=== PATIENT | female | born 1935 | race Caucasian/White ===

== ENCOUNTER 2020-01-15 08:40 | Emergency (ER) | payer MEDICARE, OTHER ==
[~2020-01-15] VITALS: Ht 160 cm; Wt 77.1 kg
[2020-01-15] MEDS ORDERED: GLUCOTROL XL2.5 MG PO (08:59)
[2020-01-15] MEDS ORDERED: NORVASC5 MG PO (08:59)
[2020-01-15] MEDS ORDERED: CRESTOR10 MG PO (08:59)
[2020-01-15] MEDS ORDERED: LISINOPRIL30 MG PO (09:00)
[2020-01-15] MEDS ORDERED: METFORMIN HCL500 MG PO (09:00)
[2020-01-15] MEDS ORDERED: ONDANSETRON ODT8 MG PO (10:50)
== END 2020-01-15 11:05 | disposition home or self-care (01) ==
LOC: ED 08:40
DX: K52.9 Noninfective gastroenteritis and colitis, unspecified (principal); B34.9 Viral infection, unspecified; E11.9 Type 2 diabetes mellitus without complications; Z87.891 Personal history of nicotine dependence; Z79.899 Other long term (current) drug therapy; Z79.84 Long term (current) use of oral hypoglycemic drugs
CPT/HCPCS: 80053; 81001; 85025; 87088; 99284; J7040; U0002

== ENCOUNTER 2020-03-25 14:05 | Inpatient (IN) | payer MEDICARE, OTHER ==
[~2020-03-25] VITALS: Ht 160 cm; Wt 70.6 kg
[~2020-03-25 14:05] MED LIST: CRESTOR10 MG PO; GLUCOTROL XL2.5 MG PO; LISINOPRIL30 MG PO; METFORMIN HCL500 MG PO; NORVASC5 MG PO; ONDANSETRON ODT8 MG PO
--- NOTE | 2020-03-25 17:33 | NUR ---
PATIENT ARRIVES TO CCU AT 1700 FROM ER ON STRETHCER. 2 PERSON ASSIST TO SLIDE PATIENT OVER TO CCU BED. INSULIN GTT INFUSING AT 5 UNITS/HR AND 1/2 NS AT 200 ML/HR INTO SEPERATE IV SITES LEFT ARM. TEMP ON ARRIVAL TO CCU 94.1 RECTAL. BARE HUGGER APPLIED TO PATIENT. PATIENT HAS A DECREASED LOC BUT DOES RESPOND TO HER NAME BEING CALLED BUT NOT FOLLOWING COMMANDS. PT HAS ATTEMPTED TO THROW THE BLANKETS OFF OF HER SOME. TEMP PROBE SOUZA PLACED AND TEMP ON THAT 93.7, BUT STARTING TO CLIMB UP TO 94.2 F AT THIS TIME. SP02 IS 100% ON ROOM AIR. HR IN THE 90s. PT ADMITTED FOR DKA, SEPSIS RELATED TO UTI. CBG CHECKED AT 1715 AND FOUND TO BE 348. INSULIN GTT INCREASED TO 9 UNITS/HR PER INSULIN SLIDING SCALE. WILL CONTINUE TO MONITOR CLOSELY.
--- NOTE | 2020-03-25 18:15 | NUR ---
CBG 300 - INSULIN GTT TITRATED DOWN TO 7.5 UNITS/HR PER PROTOCOL. TEMP PROBE SOUZA 94.7 F AT THIS TIME. CONTINUE TO MONITOR.
--- NOTE | 2020-03-25 18:19 | NUR ---
CRITICAL VALUE OF C02 OF 2. DISCUSSED WITH DR. GRIFFITHS ON THE PHONE AND ORDER REC'D TO CHANGE IVF TO 1/2 NS WITH 75 MEQ OF SODIUM BICARB AT 300 ML/HR FOR 1 L. CONTINUE TO MONITOR URINE OUTPUT CLOSELY AND ALL OTHER VITALS SIGNS.
--- NOTE | 2020-03-25 19:04 | NUR ---
CBG 252 - INSULIN GTT TITRATED DOWN TO 6.3 UNITS/HR AT THIS TIME. 1/2 NS WITH BICARB INFUSING AT 300 ML/HR. CONTINUE CARA ONITOR. URINE OUTPUT WAS 35 ML/HR.
--- NOTE | 2020-03-25 20:12 | NUR ---
pts had a blood sugar check (217), along with her hourly urine output (25ccs). PABLITO Jang assisted me in the room with pt repositioning, nothing needed from pt.
--- NOTE | 2020-03-25 20:13 | NUR ---
EYES ARE OPEN, WAS ABLE TO SAY SHE WAS IN THE HOSPITAL, THOUGHT IT WAS NOVEMBER, UNABLE TO SAY YEAR. RESP ARE LABORED APERARING AND SHE DID SAY SHE FELT SOB. RR24-30. BS 217 AND URINE OUT 25ML THIS HOUR. DR GRIFFITHS CALLED, INSULIN GTT TO 3.4 UNITS/HR. WILL NOT CHANGE IVF TO D5 AT THIS TIME BIACARB SOLUTION STILL INFUSING. REPOSITIONED. COLOR IS PINK. CONT TO HAVE HEAR HUGGER IN PLACE THOUGH PT TAKES IT OFF ARMS. T 96.3 PER SOUZA TEMP PROBE.
--- NOTE | 2020-03-25 21:07 | NUR ---
pts blood sugar was checked, (133). Her hourly urine output was at 15ccs at this time. venu tucker taken off to see if pt can maintain her temperture.
--- NOTE | 2020-03-25 21:13 | NUR ---
BS [address] INSULIN GTT TO 0.[address] GRIFFITHS ON PHONE ORDERS RECIEVED. WILL ADD D5 1/2NS AT 150ML/HR. INFORMED OF URINE OUTPUT.
--- NOTE | 2020-03-25 21:26 | NUR ---
T 97.5 SOUZA TEMP PROBE, BEAR HUGGER OFF. PT ABLE TO TURN SELF TO SIDE.
--- NOTE | 2020-03-25 22:05 | NUR ---
BS 126 INSULIN TO 0.7 UNITS/HR. URINE OUTPUT IMPROVING.
--- NOTE | 2020-03-25 23:06 | NUR ---
pts blood sugar was checked, (132), and hourly urine output is at 135ccs.
--- NOTE | 2020-03-25 23:06 | NUR ---
BS 132, INSULIN TO 0.8 UNITS/HR.
--- NOTE | 2020-03-25 23:31 | NUR ---
DR GRIFFITHS NOTIFIED OF LAB VALUES. NO NEW ORDERS.
--- NOTE | 2020-03-26 00:18 | NUR ---
BS 164, INSULIN TO 1.2 UNITS/HR. IS MORE AWAKE, STILL UNABLE TO REMEMBER MONTH. ABLE TO STATE WHERE SHE LIVES. GIVEN 2 SIPS WATER. RESP ARE MORE LABORED IN APPEARANCE WHEN AWAKE.
--- NOTE | 2020-03-26 01:03 | NUR ---
BS 152 INSULIN GGT TO 1 UNIT/HR.
--- NOTE | 2020-03-26 02:06 | NUR ---
IN TO ROOM, PT SLEEPING. CBG OBTAINED BY AERODYNAMICS PROFESSOR. CBG 149, INSULIN DRIP TITRATED DOWN PER PROTOCOL.
--- NOTE | 2020-03-26 02:08 | NUR ---
pts blood sugar was taken, (149) and her hourly urine output is currently at 60ccs. pts heavy blankets were removed as a precaution due to her temperture being 99.2. Nothing further needed at this time.
--- NOTE | 2020-03-26 03:10 | NUR ---
BS 156. INSULIN TO 1UNIT/HR PER PROTOCOL. PT RR LOW 20'S AND LESS LABORED.
--- NOTE | 2020-03-26 03:15 | NUR ---
pts blood sugar was checked, (156) along with her hourly urine output, (55ccs). pt was falling asleep while i was informing her of what i was doing,
--- NOTE | 2020-03-26 04:15 | NUR ---
BS 157 NO CHANGE IN INSULIN GTT, REMAINS AT 1 UNIT/HR. PT DOES AWAKEN TO VOICE AND WILL FOLLOW COMMANDS. REPOSITIONED.
--- NOTE | 2020-03-26 05:10 | NUR ---
bs 147, insulin gtt to 0.9 units/hr.
--- NOTE | 2020-03-26 06:09 | NUR ---
BS 148. NO CHANGE INSULIN GTT RATE.
--- NOTE | 2020-03-26 07:04 | NUR ---
BS 134, INSULIN GTT NOW 0.8 UNITS/HR
--- NOTE | 2020-03-26 07:38 | NUR ---
REPORT RECIEVED. PATIENT IS RESTFUL IN BED. INSULIN GTT INFUSING AT 0.8 UNITS HR. IVF AT 150 HR. SOUZA CATH PATIENT WITH CLEAR YELLOW URINE NOTED.
--- NOTE | 2020-03-26 09:32 | NUR ---
HERE TO SEE PATIENT. NO FUTHER ORDERS AT THIS TIME.
--- NOTE | 2020-03-26 10:00 | NUR ---
oob to chair. TOTAL LIFT. IS FOLLOWING COMMANDS.
--- NOTE | 2020-03-26 11:18 | NUR ---
LABS DRAWN. PATIENT REMAINS IN CHAIR. DENIES PROBLEMS.
--- NOTE | 2020-03-26 12:53 | NUR ---
remains in chair. ORAL CARE GIVEN, REMAINS NPO. BNP PENDING. PH-7.26, LA-1.0.
--- NOTE | 2020-03-26 13:10 | NUR ---
AYE BERMAN AWARE OF MOST RECENT LABS. ORDERS RECIEVED TO CHANGE IVF, THIS DONE.
--- NOTE | 2020-03-26 13:15 | NUR ---
back to bed with total assist.
--- NOTE | 2020-03-26 14:10 | NUR ---
C/O NAUSEA. STATES SHE DOESN'T FEEL VERY WELL.
--- NOTE | 2020-03-26 14:15 | NUR ---
ZOFRAN4 MG IV GIVEN. INSULIN GTT NOW AT 0.4 UNITS HR.
--- NOTE | 2020-03-26 15:05 | NUR ---
PATIENT IS RESTFUL AT THIS TIME.
--- NOTE | 2020-03-26 16:14 | EKG ---
[facility] [address] [facility] [place] [address] Signed Sinus tachycardia with 1st degree AV block Possible Inferior infarct , age undetermined Abnormal ECG No previous ECGs available Confirmed by MAGALI GRIFFITHS MD ([id number]) on 03/26/2020 4:14:36 PM Electronically Signed By: MAGALI GRIFFITHS MD 03/26/20 1614 PATIENT NAME: JACOBO PEDERSON ANN Electrocardiogram DATE OF : 37 PHYSICIAN: MAGALI GRIFFITHS MD REPORT #: [id number] REPORT IS CONFIDENTIAL AND NOT TO BE RELEASED WITHOUT AUTHORIZATION
--- NOTE | 2020-03-26 18:59 | NUR ---
UPDATED ON PATIENT LABS. ORDERS TO BE RECIEVED. REPOSITIONED.
--- NOTE | 2020-03-26 19:03 | NUR ---
REPORT TO NEST SHIFT.
--- NOTE | 2020-03-26 19:53 | NUR ---
PT RESTLESS AND C/O GENERALIZED DISCOMFORT/ GIVEN 4MG ZOFRAN IV FOR NAUSEA AND THEN 500MG TYLENOL WITH PUDDING FOR DISCOMFORT. STATES SHE WANTS TO BE KNOCKED OUT. HAS OCC DRY COUGH.
--- NOTE | 2020-03-26 20:16 | NUR ---
FEELING BETTER NOW, TOOK REST OF PUDDING AND WATER.
--- NOTE | 2020-03-26 20:23 | PATH ---
[facility] [address] [facility] [place], [place] [address] Signed ORDERING PHYSICIAN: Parker Maxwell MD PATIENT NAME: JACOBO PEDERSON GENDER: F : 1935 SPECIMEN(S): No Source Given MOLECULAR PATHOLOGY RESULTS: SARS-CoV-2 Not Detected ADDITIONAL NOTES.: The [place] Fusion SARS-CoV-2 Assay is a multiplex real-time PCR (RT-PCR) in vitro diagnostic test intended for the qualitative detection of RNA from SARS-CoV-2 from individuals who meet COVID-19 clinical and/or epidemiological criteria. In general, SARS-CoV-2 RNA can be detected during the acute phase of infection. Positive results indicate the presence of SARS-CoV-2 RNA. Clinical correlation with patient history and other diagnostic information is necessary to determine patient infection status. Positive results do not rule out bacterial infection or co-infection with other viruses. Negative results do not preclude SARS-CoV-2 infection and should not be used as the sole basis for patient management decisions. Negative results must be combined with other clinical observations, patient history, and epidemiological information. The [place] Fusion SARS-CoV-2 Assay is not yet approved or cleared by the [place] FDA. When there are no FDA-approved or cleared tests available, and other criteria are met, FDA can make tests available under an emergency access mechanism called an Emergency Use Authorization (EUA). The EUA for this test is supported by the [place] of Health and Human Service's (HHS's) declaration that circumstances exist to justify the emergency use of in vitro diagnostics for the detection and/or diagnosis of the virus that causes COVID-19. This EUA will remain in effect for the duration of the COVID-19 declaration justifying emergency of IVDs, unless it is terminated or revoked by FDA, after which the test may no longer be used. The [place] Fusion SARS-CoV-2 Assay is for use only under EUA in US laboratories certified under the Clinical Laboratory Improvement Amendments of 1988 (CLIA) to perform high complexity tests. [facility] is certified under CLIA to perform high complexity PATIENT NAME: JACOBO PEDERSON ANN PATHOLOGY DATE OF : 37 REPORT #: [id number] PHYSICIAN: ORACIO PATHOLOGY PCP: JIMBO JONES MD REPORT IS CONFIDENTIAL AND NOT TO BE RELEASED WITHOUT AUTHORIZATION [address] [address] Signed clinical laboratory testing. PERFORMING LABORATORY.: Molecular testing was performed by [facility] [address] [place], [place] [address] [address] (Examination Proctor: Bassem Ramon D.O.; CLIA#: [id number]) Diagnostician: System Interface Pathologist Electronically Signed 03/26/2020 Copies: ~ PATIENT NAME: JACOBO PEDERSON ANN PATHOLOGY DATE OF : 37 REPORT #: [id number] PHYSICIAN: ORACIO HANDY PCP: JIMBO JONES MD REPORT IS CONFIDENTIAL AND NOT TO BE RELEASED WITHOUT AUTHORIZATION
--- NOTE | 2020-03-26 21:30 | NUR ---
PT CALLED OUT FOR NURSE, REQUESTING TO BE REPOSITIONED. HELPED TO TURN AND LOWER HOB.
--- NOTE | 2020-03-26 23:47 | NUR ---
SOMEWHAT RESTLESS, TRYING TO GET UP BUT TOO WEAK AND POOR COORDINATION. PT DOESN'T KNOW WHY SHE WANTS TO GET UP. HELPED TO REPOSITION. DOES HAVE STUFFY NOSE AND WILL CLEAR THROAT.
--- NOTE | 2020-03-27 00:46 | NUR ---
CONT TO BE SOMEWHAT RESTLESS, OCC MOANS. UNABLE TO SAY WHY. STATES FEELS SHAKY AND DOES HAVE SOME TREMORS OF HANDS. BS 159. GIVEN 500MG TYLENOL PO FOR GEN DISCOMFORT. WILL RECHCK BS AT 0200.
--- NOTE | 2020-03-27 01:58 | NUR ---
HAS BEEN MORE RESTFUL SINCE TYLENOL WAS GIVEN. BS 168, GIVEN 1 UNIT INSULIN SUB Q.
--- NOTE | 2020-03-27 04:00 | NUR ---
PT CALLED OUT FOR NURSE. C/O BEING NAUSEATED. GIVEN 4MG ZOFRAN IV. HELPED TO REPOSITION. DENIES OTHER C/O.
--- NOTE | 2020-03-27 07:30 | NUR ---
Spoke with Tania. She states she is not feeling well. She lives with her daughter in a 1 story home with 2 steps into the back of the house. She has a walker, but does not use. Not sure what she will need as she feels she is very weak. Daughter works and leaves at 0300, home by 11:00 daily. Daughter assists pt as needed. Pt. does not feel she requires much assistance. She is retired from school cafeteria. Pt plans on dc to home.
--- NOTE | 2020-03-27 07:30 | NUR ---
PATIENT SHIFT REPORT RECIEVED FROM MATERIAL ANALYST RN. PATIENT RESTING IN BED AT THIS TIME. WILL CONTINUE TO CLOSELY MONITOR.
--- NOTE | 2020-03-27 08:30 | NUR ---
PATIENT ASSESSMENT COMPLETED. PATIENT BREATH SOUNDS CLEAR. PATIENT DENEIS SOB. BOWEL TONES ACTIVE. PATIENT STATES SHE HAS MINIMAL NAUSEA AT TIMES. PATIENT HAS MULTIPLE SKIN TEARS ON HER UPPER AND LOWER EXTREMITIES THAT ARE COVERED WITH AN ALYVAN PADS. USED ALEX SLING TO ASSIST PATIENT TO THE CHAIR. CLEAR TRAY ORDERED UP FOR PATIENT. NO OTHER NEEDS AT THIS TIME. WILL CONTINUE TO CLOSELY MONTIOR.
[2020-03-27] MEDS ORDERED: ACETAMINOPHEN-1 EACH PO (10:24)
[2020-03-27] MEDS ORDERED: ADULTS 50+ MUL1 EACH PO (10:27)
--- NOTE | 2020-03-27 12:00 | NUR ---
REPORT GIVEN TO TROY KENNEY ON Novalys. UPDATED ON PLAN OF CARE. NO OTHER NEEDS AT THIS TIME. WILL CONTINUE TO CLOSELY MONITOR.
--- NOTE | 2020-03-27 12:14 | NUR ---
PATIENT CALLED TO GET UP TO CAMMODE AND HAVE A BM. PATIENT TOELRATED WELL. 2 STAFF IN TO ASSIST PATIENT UP TO THE CAMMODE. USED A WALKER AND PATIENT ABLE TO BEAR WEIGHT, BUT IS NOTED TO BE VERY WEAK. WILL CONTINUE TO CLOSELY MONITOR.
--- NOTE | 2020-03-27 12:35 | NUR ---
PATIENT TRANSFERED TO ROOM 120. ONLY BELONGINGS PRESENT ARE A PAIR OF SOCKS. LUNCH ORDERED. CALLED PATIENTS DAUGHTER BLAIR TO UPDATE ON PLAN OF CARE AND TO SEE IF SHE COULD BRING THE PATIENTS DENTURES AND GLASSES IN TODAY AT SOME POINT. NO OTHER NEEDS AT THIS TIME. WILL CONTINUE TO CLSOELY MONITOR.
--- NOTE | 2020-03-27 12:38 | NUR ---
Patient arrives to room 120 from CCU in recliner with aide. Assessment completed. IV fluids infusing per orders. Call light placed in reach. Aide states patient's lunch has been ordered and will be delivered to room.
--- NOTE | 2020-03-27 14:20 | NUR ---
Working with PT at this time. IV converted to SL while working with PT. Complains of some numbness to leg, unable to specify which leg it is. Limps with ambulation.
--- NOTE | 2020-03-27 14:36 | NUR ---
Finishes with PT. IV fluids restarted. Denies other needs at this time. States she would like to rest at this time.
--- NOTE | 2020-03-27 16:05 | NUR ---
Sitting up in recliner. Denies needs at this time. Assessment completed. No changes from previous assessment. Assist to reposition in chair. Call light in reach.
--- NOTE | 2020-03-27 17:14 | NUR ---
Patient admitted from CCU today. Alert, disoriented to time and situation. Denies pain. IV fluids infusing per orders. Magnesium replacement completed. Glucose at lunch 142, supper 156. Sliding scale insulin used to cover blood glucose levels. Sitting up in recliner. Ceja catheter remains in place.
--- NOTE | 2020-03-27 18:01 | NUR ---
PT REMAINS UP IN THE CHAIR. NO C/O'S AT THIS TIME.
--- NOTE | 2020-03-27 19:15 | NUR ---
SHIFT REPORT RECEIVED FROM RUPAL KENNEY. PT UP IN CHAIR, WATCHING TV. NO NEEDS AT THIS TIME. CALL LIGHT IN REACH.
--- NOTE | 2020-03-27 20:02 | NUR ---
CHARGE NURSE NOTE: UP IN CHAIR, AWAKE, WATCHING TV, ON ROOM AIR, IVF INFUSING, NO C/O PAIN. [place]. CALL LIGHT AT HANDS REACH
--- NOTE | 2020-03-27 21:44 | NUR ---
PT BACK TO BED W 2PA/FWW. TRANSFER PIVOT W WEAKNESS R SIDE, SHUFFLING LIKE GAIT R SIDE. ALERT AND ORIENTED. HELPED WITH TRANSFERING TO BED AND REPOSITIONING. GENERALIZED WEAKNESS NOTED TOO. ON ROOM AIR, HOB ELEVATED TO COMFORT, LUNGS DIM AT BASES. MULTIPLE BRUISING ARMS AND MULTIPLE ALLEVYN PATCHES OVER BOTH ARMS AND LEGS. SL RARM, IVF INFUSING LARM, SITES PATENT. F/C CARE DONE, DRAINING QS YELLOW URINE. LEG ELEVTED. CBG 176, RECEIVED 2 UNITS HUMOLOG INSULIN. C/O H/A 5/10 PAIN, MEDICATED WITH TYLENOL 500MG PO. DECLINEES ICE TO BACK OF HEAD. TOLERATING FLUIDS WELL, NO N/V, ASPIRATION PRECAUTIONS IN PLACE. CALL LIGHT AT HANDS REACH. COOPERATIVE, PLEASANT
--- NOTE | 2020-03-27 21:46 | NUR ---
HELPED PABLITO GLASGOW GET PT FROM THE CHAIR INTO HER BED WITH HER FWW.
--- NOTE | 2020-03-27 23:20 | NUR ---
PT IS RESTING WITH EYES CLOSED, RR IS EVEN AND NONLABORED. CALL LIGHT IS WITHIN REACH.
--- NOTE | 2020-03-28 03:20 | NUR ---
PT IS RESTING WITH EYES CLOSED, RR IS EVEN AND NONLABORED. CALL LIGHT IS CLOSE.
--- NOTE | 2020-03-28 03:31 | NUR ---
RESTING, ON ROOM AIR, EYES CLOSED, NO RESP DISTRESS, IVF INFUSING, HOB ELEVATED TO HER COMFORT. CALL LIGHT AT BEDSIDE, F/C PATENT
--- NOTE | 2020-03-28 04:51 | NUR ---
PT IS RESTING WITH EYES CLOSED, RR IS EVEN AND NONLABORED. CALL LIGHT IS CLOSE.
--- NOTE | 2020-03-28 05:50 | NUR ---
VITALS AND I&OS DONE AND CHARTED . GARBAGES EMPTIED. INFORMED RN CHECO OF B\P BEDSIDE TABLE AND CALL LIGHT IN REACH. PT NEEDS NOTHING MORE AT THIS TIME.
--- NOTE | 2020-03-28 07:32 | NUR ---
Recieved report from Tonya Richmond RN. Patient resting in bed at this time with eyes closed. Allowed to rest. Call light in reach, bed rails up X2.
--- NOTE | 2020-03-28 09:00 | NUR ---
Uses call light and requests to lay in bed because she has been awake since 0300 this AM. 2 person assist with walker to bed. Repositioned for comfort. Denies pain. Ceja catheter DC'd per order. States she would like to rest.
--- NOTE | 2020-03-28 09:02 | NUR ---
AM medications given as prescribed. Takes without difficulty. Denies pain at this time. Sitjuani sánchez in recliner. Assessment completed. Call light in reach. Allowed to finish eating breakfast at this time.
--- NOTE | 2020-03-28 10:28 | NUR ---
Lying in bed. Eyes closed. Opens them to noise. Denies needs at this time. Call light in reach. Bed rails up X2
--- NOTE | 2020-03-28 13:01 | NUR ---
Assist from bed to bedside commode, continent of urine. Requests to sit in recliner. Assist to recliner, feet elevated. Denies other needs at this time.
--- NOTE | 2020-03-28 13:57 | NUR ---
Patient sitting up in recliner at this time. Call light in reach. Denies needs at this time.
--- NOTE | 2020-03-28 14:54 | NUR ---
VITALS GURPREET&OS CHARTED. BP ELEVATED AFTER RETURN FROM BATHROOM. RN NOTIFIED, CALL LIGHT CLOSE BY
--- NOTE | 2020-03-28 16:07 | NUR ---
Sitting up in chair at this time. Denies needs. Call light in reach.
--- NOTE | 2020-03-28 18:13 | NUR ---
Patient walked to bathroom multiple times today. Continent and incontinent of loose stools multiple times today. Denies pain today. Gait remains unsteady with exertion. Sits up in chair off and on throughout the day. Some redness noted to buttocks this evening, barrier cream applied.
--- NOTE | 2020-03-28 18:22 | NUR ---
THIS PRODUCTION ENGINE REPAIRER FOUND PATIENT STANDING IN MIDDLE OF HER ROOM, TRYING TO MAKE IT TO BR ALONE. PATIENT HAD 500 OUTPUT BM MIXED WITH URINE. BACK TO BED, VITALS AND I&OS CHARTED. CALL LIGHT IN REACH
--- NOTE | 2020-03-28 20:40 | NUR ---
ASSESSMENT, VS AND I&O COMPLETED. SCHEDULED MEDS PROVIDED. LUNGS CLEAR, BOWEL TONES ACTIVE. ABD SOFT, NONTENDER. CMS INTACT X4 EXTREMITIES. A & O X3. GCS 15. PT SLIGHTLY WEAK AND OFF-BALANCE WHEN USING FWW, 1PA PROVIDED. TOLERATED MEDS WELL. ICE WATER PROVIDED. IV WNL, CDI, FLUSHED WELL. UP TO BR AND BACK TO BED. NO OTHER NEEDS. CALL LIGHT IN REACH, BED ALARM ON.
--- NOTE | 2020-03-28 21:45 | NUR ---
ART HISTORY INSTRUCTOR ROUNDING NOTE. PT RESTING IN BED WITH EYES CLOSED. RESPIRATIONS EVEN AND UNLABORED. PT DOES NOT WAKE WHILE CVICU RN IN ROOM. WHITE BOARD UPDATED. CALL LIGHT IN REACH.
--- NOTE | 2020-03-28 23:27 | NUR ---
BED ALARM SOUNDING, PT GETTING OUT OF BED. 1PA, FWW TO BR AND BACK TO BED. PT EDUCATED CONCERNING USE OF CALL LIGHT. NO OTHER NEEDS AT THIS TIME. BED ALARM ON, RAILS UP, CALL LIGHT IN REACH.
--- NOTE | 2020-03-29 01:25 | NUR ---
PT RESTING IN BED, EYES CLOSED. RR EVEN, UNLABORED. CALL LIGHT IN REACH.
--- NOTE | 2020-03-29 02:56 | NUR ---
PT RESTING IN BED, EYES CLOSED. RR EVEN, UNLABORED. CALL LIGHT IN REACH, BED ALARM ON, RAILS UP.
--- NOTE | 2020-03-29 04:57 | NUR ---
PT RESTING IN BED, EYES CLOSED. RR EVEN, UNLABORED. BED ALARM ON, RAILS UP, CALL LIGHT IN REACH.
--- NOTE | 2020-03-29 05:39 | NUR ---
PT UP TO BR AND BACK TO BED. ASSESSMENT, VS AND I&O COMPLETED. SCATTERED BRUISING AND ABRASIONS WITH ALLEVYN NOTED. LUNG CLEAR, BOWEL TONES ACTIVE. CMS INTACT X4 EXTREMITIES. A & O TO PLACE AND EVENTS BUT NOT TIME. GCS 15. IVs WNL. TRACE EDEMA IN BLE NOTED. NO OTHER NEEDS AT THIS TIME. CALL LIGHT IN REACH.
--- NOTE | 2020-03-29 07:15 | NUR ---
Recieved report from Frankie Loya RN. Patient alert at this time. Ambulates to bathroom with walker and 1 person assist.
--- NOTE | 2020-03-29 10:49 | NUR ---
Lying on right side in bed. Denies pain at this times. States she is feeling well today, but not as well as yesterday. Assessment completed. Scheduled medications given as prescribed. Denies other needs at this time. Call light in reach, bed rails up X2.
--- NOTE | 2020-03-29 12:05 | NUR ---
Assist to sit on edge of bed to eat lunch. Denies other needs at this time. Call light in reach, bed rails up X2.
--- NOTE | 2020-03-29 16:07 | NUR ---
Lying in bed, daughter visiting patient at this time. Assessment completed. Denies needs at this time. Call light in reach, bed rails up X2.
--- NOTE | 2020-03-29 19:20 | NUR ---
REPORT RECEIVED FROM DAY SHIFT RN. PT UP TO BR WITH SBA AND FWW TO HAVE LOOSE STOOL. ASSISTED WITH GRIFFIN CARE. CLEAN BRIEF GIVEN. BACK TO BED, CORTEZ WELL. WHITE BOARD UPDATED. CALL LIGHT IN REACH.
--- NOTE | 2020-03-29 21:45 | NUR ---
took pt vitals
--- NOTE | 2020-03-29 21:50 | NUR ---
EVENING ASSESSMENT COMPLETE. SCHEDULED MEDS ADMINISTERED PER EMAR. EVENING SNACK PROVIDED. PT DENIES PAIN OR NAUSEA. CLEAN ALLEVYN PLACED ON RIGHT FOREARM SKIN TEAR. PT REPOSITIONED IN BED. HOB ELEVATED. NO FURTHER NEEDS AT THIS TIME. CALL LIGHT IN REACH.
--- NOTE | 2020-03-30 01:40 | NUR ---
PT RESTING IN BED WITH EYES CLOSED, NAD. BED ALARM ON.
--- NOTE | 2020-03-30 01:57 | NUR ---
CALL LIGHT ANSWERED. PT UP TO BR WITH SBA AND FWW. GAIT STEADY. PT ABLE TO DO OWN GRIFFIN CARE. CLEAN BRIEF PROVIDED. BACK TO BED, CORTEZ WELL.
--- NOTE | 2020-03-30 03:55 | NUR ---
PT LYING IN BED RESTING WITH EYES CLOSED. RR EVEN AND UNLABORED. BED ALARM FOR SAFETY. CALL LIGHT IN REACH.
--- NOTE | 2020-03-30 05:10 | NUR ---
sba pt to toilet, took vitals, gave fresh ice water
--- NOTE | 2020-03-30 05:11 | NUR ---
sba pt to toilet, bk to bed, took am vitals, gave fresh ice water
--- NOTE | 2020-03-30 05:26 | NUR ---
ASSESSMENT COMPLETE. PT DENIES PAIN OR NAUSEA. NO NEEDS AT THIS TIME. BED ALARM FOR SAFETY. CALL LIGHT IN REACH.
--- NOTE | 2020-03-30 05:50 | NUR ---
retake bp per rn
--- NOTE | 2020-03-30 07:37 | NUR ---
0715: Report received from Jessica KENNEY. Pt sleeping with her call elizabeth within reach.
--- NOTE | 2020-03-30 08:11 | NUR ---
PT SITTING AT THE BEDSIDE EATING BREAKFAST WITH NO COMPLAINTS AT THIS TIME. VSS, SEE ASSESSMENT.
--- NOTE | 2020-03-30 10:55 | NUR ---
Pt appears to be sleeping comfortably at this time. Call elizabeth within reach.
--- NOTE | 2020-03-30 12:50 | NUR ---
PT STATES SHE IS TIRED SHE SLEPT POORLY LAST NIGHT AND SHE COMPLAINS OF LOOSE STOOLS. STOOL SAMPLE RECENTLY SENT TO THE LAB. PT ALSO STATES SHE HAS A "SLIGHT" MONDRAGON BUT DENIES THE NEED FOR ANYTHING FOR IT AND SHE QUICKLY FELL TO SLEEP. SEE ASSESSMENT.
--- NOTE | 2020-03-30 15:21 | NUR ---
PT SLEEPING, CALL ROCHA WITHIN REACH.
--- NOTE | 2020-03-30 16:47 | NUR ---
Pt assisted to the bathroom and back to bed. She declines the chair which she states is just uncomfortable. Pt has sat at the edge of the bed for her meals and states. Pt ambulated well with the use of her fww and a sba. She denies any problems or pain at this time.
--- NOTE | 2020-03-30 18:29 | NUR ---
Pt assisted to the br and she was helped back to bed. She continues to refuse to sit in the chair. She denies any pain or other problems.
--- NOTE | 2020-03-30 19:49 | NUR ---
REPORT RECEIEVD FROM DAY SHIFT RN. PT LYING IN BED WITH EYES CLOSED. NAD. WHITE BOARD UPDATED. CALL LIGHT IN REACH.
--- NOTE | 2020-03-30 20:50 | NUR ---
EVENING ASSESSMENT COMPLETE. SCHEDULED MEDS ADMINISTERED PER EMAR. UP TO BR WITH 1PA AND FWW TO VOID. GAIT STEADY. BACK TO BED, CORTEZ WELL. PT DENIES PAIN OR NAUSEA. PRN ADMINISTERED FOR SLEEP. PT DENIES FURTHER NEEDS. BED ALARM FOR SAFETY. CALL LIGHT IN REACH.
--- NOTE | 2020-03-30 23:27 | NUR ---
PT RESTING IN BED WITH EYES CLOSED, NAD.
--- NOTE | 2020-03-31 02:15 | NUR ---
PT RESTING IN BED WITH EYES CLOSED. RR EVEN AND UNLABORED. BED ALARM ON.
--- NOTE | 2020-03-31 03:58 | NUR ---
BED ALARM SOUNDING. PT UP TO BR WITH SBA AND FWW TO VOID. GAIT STEADY. PT INCONTINENT OF URINE. CLEAN BRIEF PROVIDED. BACK TO BED, CORTEZ WELL. DENIES FURTHER NEEDS. CALL LIGHT IN REACH. BED ALARM ON.
--- NOTE | 2020-03-31 06:30 | NUR ---
took pt vitals, recorded I&Os, nothing further requested by pt, left pt to rest, call light in reach
--- NOTE | 2020-03-31 07:43 | NUR ---
PT APPEARS TO BE RESTING SOUNDLY AT TIME OF REPORT. BREATHING EVEN AND UNLBORED
--- NOTE | 2020-03-31 09:50 | NUR ---
PATIENT SLEEPING SOUNDLY IN BED. WILL RETURN LATER.
[2020-03-31] MEDS ORDERED: DOXYCYCLINE HY100 MG PO (10:32)
[2020-03-31] MEDS ORDERED: CULTURELLE1 EAC1 PO (10:33)
[2020-03-31] MEDS ORDERED: LOPERAMIDE2 M1 PO (10:34)
--- NOTE | 2020-03-31 10:35 | NUR ---
PATIENT IN BED RESTING WITH EYES CLOSED. CALL LIGHT IN REACH. NO FURTHER NEEDS AT THIS TIME.
--- NOTE | 2020-03-31 11:11 | NUR ---
PT UP TO SIDE OF BED FOR MORNING MEAL, REFUSES CHAIR. RETURNS TO RESTING SUPINE. DR IWNKLER IN TO SEE HER ORDERS WRITTEN, MG SINCLAIR STARTED.
--- NOTE | 2020-03-31 13:01 | NUR ---
PT UP IN THE CHAIR, IV SITE DC'D CATH INTACT. DC INSTRUCTIONS DISCUSSED LUNCH ORDERED. PT WAITING ON HER DAUGHTER
--- NOTE | 2020-03-31 13:21 | NUR ---
PT SLEEPING, WILL CHECK BACK
== END 2020-03-31 13:25 | disposition home or self-care (01) | DRG 871 ==
LOC: ED 14:05 → CCU 16:26 → MS 16:26
PROVIDERS: ADMIT Internal Medicine
DX: A41.01 Sepsis due to Methicillin susceptible Staphylococcus aureus (principal); E11.10 Type 2 diabetes mellitus with ketoacidosis without coma; G93.41 Metabolic encephalopathy; N30.00 Acute cystitis without hematuria; N17.9 Acute kidney failure, unspecified; E87.0 Hyperosmolality and hypernatremia; Z20.828 Contact with and (suspected) exposure to other viral communicable diseases; R65.20 Severe sepsis without septic shock; E11.22 Type 2 diabetes mellitus with diabetic chronic kidney disease; K52.9 Noninfective gastroenteritis and colitis, unspecified; E87.5 Hyperkalemia; I12.9 Hypertensive chronic kidney disease with stage 1 through stage 4 chronic kidney disease, or unspecified chronic kidney disease; N18.3 Chronic kidney disease, stage 3 (moderate); D53.9 Nutritional anemia, unspecified; E78.5 Hyperlipidemia, unspecified; Z66 Do not resuscitate; Z87.891 Personal history of nicotine dependence; Z85.038 Personal history of other malignant neoplasm of large intestine; Z79.899 Other long term (current) drug therapy; Z79.84 Long term (current) use of oral hypoglycemic drugs
CPT/HCPCS: 36415; 70450; 71045; 72125; 80048; 80053; 81001; 82010; 82607; 82728; 82746; 82800; 82803; 83036; 83540; 83605; 83735; 84466; 85025; 85045; 87077; 87088; 87186; 87493; 93005; 93010; 96374; 96375; 97110; 97112; 97116; 97162; 97165; 97535; 99285-25; C9803; J0692; J1650; J1815; J2405; J3475; J3480; J7030; J7040; J7042; J7070; J7121

== ENCOUNTER → 2021-02-01 | Emergency (ER) | payer MEDICARE, OTHER ==
[~2021-02-01] VITALS: Ht 160 cm; Wt 70.6 kg
[~2021-02-01] MED LIST changes: +ACETAMINOPHEN-1 EACH PO; +ADULTS 50+ MUL1 EACH PO; +CULTURELLE1 EAC1 PO; +DOXYCYCLINE HY100 MG PO; +LOPERAMIDE2 M1 PO
--- OUTSIDE RECORDS SUMMARY | 2021-02-01 10:28 | XMS ---
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 Rohan has no Care Guidelines for this patient. [place] VISIT COUNT (12 MO.) 2 [facility] TOTAL 2 NOTE: Visits indicate total known visits. ED/UCC VISIT TRACKING (12 MO.) 02/01/2021 10:18 [facility] TYPE: Emergency COMPLAINT: - WEAKNESS 03/25/2020 14:06 [facility] [place] TYPE: Emergency COMPLAINT: - GLF/SOB INPATIENT VISIT TRACKING (12 MO.) 03/25/2020 16:26 [facility] [place] TYPE: Medical Surgical COMPLAINT: - DKA, SEPSIS DIAGNOSES: - Type 2 diabetes mellitus with ketoacidosis without coma - Contact with and (suspected) exposure to other viral communicable diseases - Nutritional anemia, unspecified - Sepsis, unspecified organism - Nutritional anemia, unspecified - Hypertensive chronic kidney disease with stage 1 through stage 4 chronic kidney disease, or unspecified chronic kidney disease - Acute kidney failure, unspecified - Sepsis due to Methicillin susceptible Staphylococcus aureus - Metabolic encephalopathy - Hypertensive chronic kidney disease with stage 1 through stage 4 chronic kidney disease, or unspecified chronic kidney disease - Severe sepsis without septic shock - [facility] (current) use of oral hypoglycemic drugs - Metabolic encephalopathy - Chronic kidney disease, stage 3 (moderate) - Do not resuscitate - Do not resuscitate - Hyperosmolality and hypernatremia - Acute kidney failure, unspecified - Other [facility] (current[facility] drug therapy - Personal history of other malignant neoplasm of large intestine - Hyperkalemia - Hyperlipidemia, unspecified - Hyperlipidemia, unspecified - Hyperosmolality and hypernatremia - Personal history of nicotine dependence - Personal history of other malignant neoplasm of large intestine - Acute cystitis without hematuria - Acute cystitis without hematuria - Type 2 diabetes mellitus with ketoacidosis without coma - 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 - Chronic kidney disease, stage 3 (moderate) - Type 2 diabetes mellitus with diabetic chronic kidney disease - [facility] (current) use of oral hypoglycemic drugs - Contact with and (suspected) exposure to other viral communicable diseases - Severe sepsis without septic shock - Sepsis due to Methicillin susceptible Staphylococcus aureus - Type 2 diabetes mellitus with diabetic chronic kidney disease - Noninfective gastroenteritis and colitis, unspecified - Hyperkalemia - Personal history of nicotine dependence - Noninfective gastroenteritis and colitis, unspecified [email or web address]
--- NOTE | 2021-02-02 18:05 | EKG ---
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
== END ==
LOC: ED 10:17
DX: R53.1 Weakness (principal); E11.9 Type 2 diabetes mellitus without complications; Z87.891 Personal history of nicotine dependence; Z79.899 Other long term (current) drug therapy; Z79.84 Long term (current) use of oral hypoglycemic drugs
CPT/HCPCS: 80053; 81001; 83735; 84484; 85025; 93005; 93010; 99285-25

== ENCOUNTER 2021-03-31 11:18 | Emergency (ER) | payer MEDICARE, OTHER ==
[~2021-03-31] VITALS: Ht 160 cm; Wt 70.6 kg
--- OUTSIDE RECORDS SUMMARY | 2021-03-31 11:24 | XMS ---
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 Care History Medical/Surgical 02/02/2021 [facility] - Patient is currently established with [facility]. If patient is seen in the ED during business hours. Please contact [facility] at [facility]. Care Recommendation: If this patient has had 5 or more Emergency Department visits in the last 12 months.\T\nbsp; Patient will require education on the scope and purpose of the ED as an acute care provider not a Primary Care Provider and should not be utilized for chronic conditions.\T\nbsp; These are guidelines and the provider should exercise clinical judgment when providing care. E.D. VISIT COUNT (12 MO.) 2 [facility] TOTAL 2 NOTE: Visits indicate total known visits. ED/UCC VISIT TRACKING (12 MO.) 03/31/2021 11:[address] [facility] TYPE: Emergency COMPLAINT: - CHEST PAIN 02/01/2021 10:18 [facility] [place] TYPE: Emergency COMPLAINT: - WEAKNESS DIAGNOSES: - Other superintendent [employer] (current) drug therapy - Weakness - Type 2 diabetes mellitus without complications - [facility] (current) use of oral hypoglycemic drugs - Personal history of nicotine dependence INPATIENT VISIT TRACKING (12 MO.) No inpatient visits to display in this time frame [email or web address]
--- NOTE | 2021-03-31 17:28 | NUR ---
Zio monitor applied without difficulty. Patient verbalized understanding of instructions. Registered with [employer]. DEVICE SERIAL # [id number]
--- NOTE | 2021-03-31 19:54 | EKG ---
[facility] [address] [facility] [address] [place] [address] Signed Normal sinus rhythm Inferior infarct (cited on or before 25-MAR-2020) Abnormal ECG When compared with ECG of 01-FEB-2021 10:42, No significant change was found Confirmed by XIMENA ARCE MD ([id number]) on 03/31/2021 7:54:40 PM Electronically Signed By: XIMENA ARCE MD 03/31/211953 PATIENT NAME: JACOBO PEDERSON ANN Electrocardiogram DATE OF : 37 PHYSICIAN: XIMENA ARCE MD REPORT #: [id number] REPORT IS CONFIDENTIAL AND NOT TO BE RELEASED WITHOUT AUTHORIZATION
== END 2021-03-31 17:15 | disposition home or self-care (01) ==
LOC: ED 11:18
DX: R00.2 Palpitations (principal); E11.9 Type 2 diabetes mellitus without complications; I10 Essential (primary) hypertension; Z87.891 Personal history of nicotine dependence; Z79.899 Other long term (current) drug therapy; Z79.84 Long term (current) use of oral hypoglycemic drugs; Z20.822 Contact with and (suspected) exposure to COVID-19
CPT/HCPCS: 80053; 83735; 84484; 85025; 93005; 93010; 99285-25; J7030; U0003

== ENCOUNTER 2021-06-05 10:53 | Emergency (ER) | payer MEDICARE, OTHER ==
[~2021-06-05] VITALS: Ht 160 cm; Wt 75.6 kg
== END 2021-06-05 13:36 | disposition home or self-care (01) ==
LOC: ED 10:53
DX: E11.65 Type 2 diabetes mellitus with hyperglycemia (principal); F32.9 Major depressive disorder, single episode, unspecified; I10 Essential (primary) hypertension; Z87.891 Personal history of nicotine dependence; Z79.899 Other long term (current) drug therapy; Z79.84 Long term (current) use of oral hypoglycemic drugs
CPT/HCPCS: 80053; 81001; 85025; 99285; J7040